=== PATIENT | male | born 1950 | race African-American/Black ===

== ENCOUNTER 2022-12-05 06:49 | Day surgery (SDC) | payer OTHER, SELFPAY ==
[2022-11-20 17:16] LABS: Absolute Lymphocytes (CBC) 1.8 K/uL (0.7-4.9); Lymphocytes % 28.1 % (15.3-44.8); MCV 84.2 fL (80-100); MPV 8.3 fL (7.6-11.3); Protime INR 1.16; RBC Red Blood Cell Count 4.16 M/uL (4.33-5.43)
[2022-11-20 17:17] LABS: Potassium 3.1 mmol/L (3.5-5.1)
--- NOTE | 2022-11-20 17:45 | RAD REPORT ---
EXAM DESCRIPTION: Mounika Montoya (2 Views)11/20/2022 5:13 pm CLINICAL HISTORY: Preop for genitourinary surgery. Hypertension COMPARISON: None FINDINGS: The lungs appear clear of acute infiltrate. The heart is normal size IMPRESSION: No acute abnormalities displayed
--- NOTE | 2022-11-21 17:34 | EKG ---
Test Date: 2022-11-20 Test Time: 16:37:06 Coordinate Measuring Machine Operator: DEACON MEASUREMENT RESULTS: Intervals: Rate: 59 HI: 180 QRSD: 94 QT: 414 QTc: 409 [place]: P: 66 HI: 180 QRS: -17 T: 60 INTERPRETIVE STATEMENTS: Sinus bradycardia Incomplete right bundle branch block Septal infarct, age undetermined Abnormal ECG No previous ECG available for comparison Electronically Signed On 11-21-22 17:32:05 SHOPPER by Cristhian Goodwin
[2022-12-05] MEDS ORDERED: LIDOCAINE 1% MPF 5 ML VIAL ONE ×2 (07:00→07:30)
[2022-12-05] MEDS ORDERED: propofoL 200 MG/20 ML VIAL IV ONE ×2 (07:00→07:30)
[2022-12-05] MEDS ORDERED: ROCURONIUM 50 MG/5 ML VIAL IV ONE ×2 (07:00→07:30)
[2022-12-05] MEDS ORDERED: FENTANYL CITR 100 MCG/2 ML ONE ×2 (07:00→08:24)
[2022-12-05] MEDS ORDERED: MIDAZOLAM HCL 2 MG/2 ML INJ ONE ×2 (07:00→07:30)
[2022-12-05] MEDS ORDERED: ONDANSETRON 4 MG/2 ML VIAL ONE (07:08)
[2022-12-05] MEDS ORDERED: Ringers Lactate 1,000 ML IV ONE (07:22)
[2022-12-05] MEDS ORDERED: CEFAZOLIN SODIUM 2 GM/VIAL ONE (07:25)
[2022-12-05] MEDS ORDERED: SUCCINYLCHOLINE 20 MG/ML (10 ML) IV ONE (07:30)
[2022-12-05] MEDS ORDERED: EPHEDRINE SULF 50 MG/ML VIAL ONE (07:48)
[2022-12-05] MEDS ORDERED: GLYCOPYRROLATE 0.2 MG/ML SYR ONE (08:03)
[2022-12-05] MEDS ORDERED: PHENAZOPYRIDINE 100MG TAB PO ONE (08:14)
[2022-12-05] MEDS ORDERED: CODEINE 30MG/APAP 300MG TAB PO PRN (08:14)
[2022-12-05 09:31] VITALS: BP 107/55; TEMP 96.6; O2SAT 100
--- NOTE | 2022-12-05 09:47 | OP ---
Surgeon: EDWAR MATTHEW Preoperative Diagnoses: Benign prostatic hypertrophy with lower urinary tract obstruction and sympto ms. Postoperative Diagnoses: Benign prostatic hypertrophy with lower urinary tract obstruction and sympt oms. Principal Procedure: Prostatic urethral lift/UroLift with 4 implants placed. Indication For Procedure: Mr. Love is a 72-year-old gentleman with BPH with lower urinary tract sy mptoms and mild urge incontinence, improved on Flomax, desiring to eliminate the need for medical the rapy. He was counseled on options for management and elected to proceed with UroLift. Procedure In Detail: The patient was consented in the preoperative holding area before being transfe rred to the operative suite where general anesthesia was induced. He was given Ancef 2 g IV antimicr obial prophylaxis and pneumo boots were provided for DVT prophylaxis. He was placed in the lithotomy position, padded and secured to the table appropriately, and his genitalia were prepped with Hibicle ns before being draped in standard fashion. The case was begun using a 20-Bermudian UroLift obturator a nd scope to traverse the urethra and into the bladder with ease. The previously noted anatomic findi ngs of lateral lobar hypertrophy with elevated median bar with minimal intravesical projection were a gain seen. As a result, after decompressing his bladder, I substituted the UroLift obturator for an implant and this time targeted the first implant in the region of the left lateral wall of the prosta te approximately 1.5 to 2 cm distal to the bladder neck. The implant was started anteriorly, sweepin g the anterior zone of the prostate laterally and placing the implant at approximately the 1 o'clock position. The implant ended up in optimal position and imbedded within the prostatic tissue at that location. The implant was placed by first angling the scope approximately 10 degrees in the desired location before pulling the trigger once, which deployed the needle through the prostate. An additio nal 10 degrees of compression was obtained to ensure needle delivery all the way through to the capsu lar surface of the prostate. An additional pull of the trigger deployed the capsular tab and retract ed the needle part way. A third pull of the trigger completely retracted the needle and then tension ed the suture. I then advanced the scope back to the midline and approximately about 2 to 3 mm until the monofilament was centered in the delivery bay. I then pulled the trigger 4th time cutting the s uture, tailoring the size of the suture and applying the urethral end piece. Again as noted previous ly, the end piece ended up and imbedded the prostatic tissue at the bladder neck in optimal position elevating the tissue laterally and already creating a partially open channel of the bladder neck. As a result, I placed a second implant using similar steps this time on the right side about 1.5 to 2 c m distal to the bladder neck and at the 11 o'clock position. This created a beautiful open bladder n ana. I then observed the prostatic urethra and there was still some apical and mid gland lateral lob ar hypertrophy; so I placed a third implant this time at the level of the verumontanum at about the 2 o'clock position at the level of the verumontanum. A 4th implant was placed this time on the right apex of the prostate at the level of the verumontanum. I then switched the UroLift delivery device f or visual obturator and surveyed the channel, and a beautiful general had been created with his bladd er completely decompressed visible from the verumontanum all the way into the bladder. As a result, with minimal oozing coming from the prostate, I backfilled his bladder and placed an 18-Bermudian cathet er with ease. About 20 cc of sterile water was placed in the balloon, and the catheter was connected to gravity drainage via a leg bag. The patient was then taken out of the lithotomy position, awaken ed from general anesthesia, transferred to a stretcher, and then transferred to the recovery room in good condition. Complications: None. Discharge Disposition: He should follow up in the [facility] in about 1 to 2 months' time interv al assessment. He will be given a voiding trial prior to discharge from recovery today. WR/MODL Voice ID: [id number] Report ID: [id number]
[2022-12-05] MEDS ORDERED: CODEINE 30MG/APAP 300MG TAB ONE (09:56)
== END 2022-12-05 10:12 | disposition home or self-care (01) ==
LOC: OR 06:49
PROVIDERS: ATTEND Urology
PROC: 0T7D8DZ Dilation of Urethra with Intraluminal Device, Via Natural or Artificial Opening Endoscopic (ICD-10-PCS; principal; 2022-12-05 07:30)
DX: N40.1 Benign prostatic hyperplasia with lower urinary tract symptoms (principal); N13.8 Other obstructive and reflux uropathy; N39.41 Urge incontinence; I10 Essential (primary) hypertension; N52.9 Male erectile dysfunction, unspecified
CPT/HCPCS: 93005; 87088; 85025; 87086; 80048; 36415; 85610; 85730; 71046; 52441; 52442 ×3; J2704; J2001; J2250; J3010; J7120; J2405